=== PATIENT | female | born 1985 | race African-American/Black ===

== ENCOUNTER 2020-10-17 08:28 | Emergency (ER) | payer SELFPAY | END 2020-10-17 08:34 | disposition left against medical advice (07) | LOC: ED 08:28 | DX: R56.9 Unspecified convulsions (principal) ==

== ENCOUNTER → 2020-10-17 18:33 | Emergency (ER) | payer SELFPAY | END | disposition left against medical advice (07) | LOC: ED 18:33 | DX: Z53.21 Procedure and treatment not carried out due to patient leaving prior to being seen by health care provider (principal) ==